=== PATIENT | female | born 1940 | race Caucasian/White ===

== ENCOUNTER 2018-12-08 13:05 | Emergency (ER) | payer OTHER ==
[~2018-12-08] VITALS: Ht 162.6 cm; Wt 65.8 kg
[~2018-12-08 13:05] MED LIST: ATENOLOL25 MG PO; C-10001000 MG PO; COD LIVER OIL1 EACH PO; COZAAR100 MG PO; FOLTX TABLET1 EACH PO; GABAPENTIN600 MG PO; GLUCOPHAGE XR500 MG PO; JANUVIA100 MG PO
[2018-12-08] MEDS ORDERED: MULTI VITAMIN1 EACH (14:05)
[2018-12-08] MEDS ORDERED: VITAMIN D310000 UNIT (14:06)
[2018-12-08] MEDS ORDERED: LIPIODOL10 ML (14:07)
== END 2018-12-08 18:24 | disposition home or self-care (01) ==
LOC: ER 13:05
DX: S00.81XA Abrasion of other part of head, initial encounter (principal); S00.211A Abrasion of right eyelid and periocular area, initial encounter; S80.02XA Contusion of left knee, initial encounter; S60.221A Contusion of right hand, initial encounter; W01.118A Fall on same level from slipping, tripping and stumbling with subsequent striking against other sharp object, initial encounter; Y93.89 Activity, other specified; Y92.018 Other place in single-family (private) house as the place of occurrence of the external cause; Y99.8 Other external cause status